=== PATIENT | female | born 1955 | race Caucasian/White ===

== ENCOUNTER 2017-10-06 16:12 | Emergency (ER) | payer BC ==
[2017-10-06 16:36] VITALS: TEMP 97.6
[2017-10-06 17:34] VITALS: BP 120/67; PULSE 71; RESP 20; O2SAT 99
== END 2017-10-06 17:11 | disposition home or self-care (01) ==
LOC: ED 16:12
DX: E11.649 Type 2 diabetes mellitus with hypoglycemia without coma (principal); Z79.84 Long term (current) use of oral hypoglycemic drugs
CPT/HCPCS: 82962; 99283